=== PATIENT | female | born 1995 | race Caucasian/White ===

== ENCOUNTER 2017-06-15 22:29 | Emergency (ER) | payer SELFPAY ==
[2017-06-15 23:44] LABS: AMORPHOUS SEDIMENT,URINE TRACE /HPF; APPEARANCE,URINE CLOUDY; BILIRUBIN,URINE NEGATIVE (NEGATIVE); GLUCOSE, URINE NEGATIVE (NEGATIVE); KETONES,URINE TRACE mg/dL (NEGATIVE); LEUKOCYTE ESTERASE,URINE LARGE (NEGATIVE); NITRITE,URINE NEGATIVE (NEGATIVE); PROTEIN,URINE 30 mg/dL (NEGATIVE); UROBILINOGEN,URINE NEGATIVE mg/dL (<2.0)
[2017-06-16] MEDS ORDERED: PHENAZOPYRIDINE HCL 200 MG TABLET PO ONE (00:26)
[2017-06-16] MEDS ORDERED: CIPROFLOXACIN HCL 500 MG TABLET PO ONE (00:26)
--- NOTE | 2017-06-16 00:26 | ER Document Report ---
ED GI/ - HPI Similar symptoms previously: Yes Recently seen / treated by doctor: No - General Chief Complaint: Urinary Problem Stated Complaint: UTI SYMPTOMS Time Seen by Provider: 06/16/17 00:18 Notes: This 21-year-old female patient comes emergency room complaining of frequency and dysuria and suprapubic pressure since Saturday afternoon. She reports she frequently gets urinary tract infections since the having the Implanon placed after the of her child. By history, it seems she always gets prescribed Cipro. She states this was used after another antibiotic did not work for UTI during her . Urinalysis today shows a hemorrhagic cystitis. The urine culture will be done. She is encouraged to call medical records to get a copy of her urine culture and sensitivity to keep with her so that a better antibiotic choice than using Cipro can be done in the future if needed. The patient also reported a throbbing sensation in the right lower quadrant pelvic region this afternoon which is gone now. She also had a pain in her left scapular area and right elbow recently and wondered if it was related to the urine infection. (KVNG SANTANA) - Related Data Allergies/Adverse Reactions: Penicillins Allergy (Verified 06/15/17 22:49) Past Medical History - General Information source: Patient - Social History Smoking Status: Never Smoker Cigarette use (# per day): No Chew tobacco use (# tins/day): No Smoking Education Provided: No Frequency of alcohol use: None Drug Abuse: None Family History: None Patient has suicidal ideation: No Patient has homicidal ideation: No Surgical Hx: Negative Review of Systems - Review of Systems Constitutional: No symptoms reported EENT: No symptoms reported Cardiovascular: No symptoms reported Respiratory: No symptoms reported Gastrointestinal: See HPI, Abdominal pain Genitourinary: See HPI, Burning, Dysuria Female Genitourinary: No symptoms reported Musculoskeletal: No symptoms reported Skin: No symptoms reported Hematologic/Lymphatic: No symptoms reported Neurological/Psychological: No symptoms reported -: Yes All other systems reviewed and negative Physical Exam - Vital signs Interpretation: Normal - Vital signs Vitals: Pulse Resp BP Pulse Ox 55 L 17 105/61 100 06/15/17 22:49 06/15/17 22:49 06/15/17 22:49 06/15/17 22:49 - Notes Notes: GENERAL: Alert, interacts well. No acute distress. HEAD: Normocephalic, atraumatic. EYES: Appear normal. Pupils equal, round, and reactive to light. ENT: Moist mucus membranes, tongue midline. NECK: Full range of motion. Supple. Trachea midline. LUNGS: Clear to auscultation bilaterally, no wheezes, rales, or rhonchi. No respiratory distress. HEART: Regular rate and rhythm. No murmurs, gallops, or rubs. ABDOMEN: Soft, slight suprapubic tenderness with palpation, LLQ is non-tender. Non-distended. Normal bowel sounds. EXTREMITIES: Moves all 4 extremities spontaneously. Normal strength. No edema. NEUROLOGICAL: Alert and oriented x3. Normal speech. No focal neurological deficits. GCS 15. PSYCH: Normal affect, normal mood. SKIN: Warm, dry, normal turgor. No rashes or lesions noted. (KIAH MITCHELL) - Vital Signs Vital signs: Temp Pulse Resp BP Pulse Ox 55 L 17 105/61 100 06/15/17 22:49 06/15/17 22:49 06/15/17 22:49 06/15/17 22:49 - Laboratory Laboratory results interpreted by me: 06/15/17 23:10 Urine Protein 30 H Urine Ketones TRACE H Urine Blood LARGE H Ur Leukocyte Esterase LARGE H Discharge - Discharge Clinical Impression: Urinary tract infection Qualifiers: Urinary tract infection type: acute cystitis Hematuria presence: with hematuria Qualified Code(s): N30.01 - Acute cystitis with hematuria Condition: Stable Disposition: HOME, SELF-CARE Additional Instructions: Urinary Tract Infection: Your evaluation indicates that you have a urinary tract infection. This is due to germs growing in the bladder. This is a common problem. This infection usually responds quickly to antibiotics. Your antibiotic should be taken exactly as prescribed. Drink plenty of fluids -- three to four quarts a day. Occasionally, a bladder anesthetic will be prescribed to help stop the feeling of urgency until the antibiotic has a chance to clear the infection. This may cause your urine to be dark orange. Certain urine infections require a culture. If the doctor obtained a culture, the results will be back in two days. You should call to see if a change in treatment is needed. A repeat urinalysis after you finish treatment is often recommended. The physician will let you know if further testing is required. Call the doctor if you develop fever, chills, flank pain, inability to urinate, or blood in the urine. //////////////////////////////////////////////////////////////////////////////// //////////////////////////////////////////////////////////////////////////////// //////////////// Take the medications as prescribed. Drink plenty of fluids. Follow-up with a local medical doctor or return to emergency room if not improving. Call medical records later this week to get a copy of the urine culture and sensitivity report. You should carry that with you the next time you seek treatment for urinary tract infection. RETURN TO THE EMERGENCY ROOM IF ANY NEW OR WORSENING SYMPTOMS. Prescriptions: Ciprofloxacin HCl [Cipro 250 mg Tablet] 1 tab PO BID #10 tab Phenazopyridine HCl [Pyridium 200 mg Tablet] 200 mg PO TID #10 tablet Scribe Attestation: 06/16/17 00:29 I personally performed the services described in the documentation, reviewed and edited the documentation which was dictated to the scribe in my presence, and it accurately records my words and actions. (KVNG SANTANA) Scribe Documentation - Scribe Written by Scrgianfranco:: Kiah Mitchell, Nirav 06/16/2017 00:55 acting as scribe for :: Howie
[2017-06-16 00:59] VITALS: BP 111/64
== END 2017-06-16 00:58 | disposition home or self-care (01) ==
LOC: ER 22:29
DX: N30.01 Acute cystitis with hematuria (principal); Z88.0 Allergy status to penicillin
CPT/HCPCS: 99283; 87086; 81025; 81001; J3490

== ENCOUNTER 2017-11-25 10:35 | Emergency (ER) | payer BC, MEDICAID ==
[2017-11-25 10:40] VITALS: BP 111/62
--- NOTE | 2017-11-25 11:38 | ER Document Report ---
HPI - HPI Onset: Yesterday Onset/Duration: Gradual Quality of pain: Achy Pain Level: 2 Context: Patient presents complaining of cough and congestion with sneezing that started yesterday. Patient denies any fever. Patient works around food and states that her employer advised her to get a note stating that she is not contagious. Associated Symptoms: Nonproductive cough, Rhinnorhea. denies: Fever, Vomiting Exacerbated by: Denies Relieved by: Denies Similar symptoms previously: Yes Recently seen / treated by doctor: No - ROS ROS below otherwise negative: Yes Systems Reviewed and Negative: Yes All other systems reviewed and negative - CONSTITUTIONAL Constitutional: DENIES: Fever - EENT EENT: REPORTS: Sore Throat, Nasal Drainage-Clear, Congestion - RESPIRATORY Respiratory: REPORTS: Coughing - GASTROINTESTINAL Gastrointestinal: DENIES: Abdominal Pain, Nausea, Patient vomiting, Diarrhea - DERM Skin Color: Normal Skin Problems: None Past Medical History - General Information source: Patient - Social History Smoking Status: Current Every Day Smoker Smoking Education Provided: Yes Frequency of alcohol use: Rare Drug Abuse: None Occupation: [employer] Family History: None Patient has suicidal ideation: No Patient has homicidal ideation: No - Medical History Medical History: Negative Pulmonary Medical History: Reports: Hx Asthma Renal/ Medical History: Denies: Hx Peritoneal Dialysis Psychiatric Medical History: Reports: Hx Depression - post Surgical Hx: Negative Vertical Provider Document - CONSTITUTIONAL Agree With Documented VS: Yes Exam Limitations: No Limitations General Appearance: WD/WN, No Apparent Distress - INFECTION CONTROL TRAVEL OUTSIDE OF THE [place] IN LAST 30 DAYS: No - HEENT HEENT: Atraumatic, Normocephalic, Pharyngeal Tenderness. negative: Pharyngeal Exudate, Pharyngeal Erythema, Tympanic Membrane Red, Tympanic Membrane Bulging Notes: clear rhinorrhea - NECK Neck: Normal Inspection, Supple. negative: Lymphadenopathy-Left, Lymphadenopathy-Right - RESPIRATORY Respiratory: Breath Sounds Normal, No Respiratory Distress, Chest Non-Tender O2 Sat by Pulse Oximetry: 99 - CARDIOVASCULAR Cardiovascular: Regular Rate, Regular Rhythm, No Murmur - BACK Back: Normal Inspection - MUSCULOSKELETAL/EXTREMETIES Musculoskeletal/Extremeties: MAEW - NEURO Level of Consciousness: Awake, Alert, Appropriate Motor/Sensory: No Motor Deficit - DERM Integumentary: Warm, Dry, No Rash Course - Re-evaluation Re-evalutation: 11/25/17 11:36 Patient presents with symptoms consistent with upper respiratory infection. No concern for pneumonia or PE at this time. No concern for REC[employer]ROCATING [employer]. Good return precautions given to patient. - Vital Signs Vital signs: Temp Pulse Resp BP Pulse Ox 99.6 F 81 14 111/62 99 11/25/17 10:39 11/25/17 10:39 11/25/17 10:39 11/25/17 10:39 11/25/17 10:39 Discharge - Discharge Clinical Impression: Upper respiratory infection Qualifiers: URI type: unspecified URI Qualified Code(s): J06.9 - Acute upper respiratory infection, unspecified Condition: Stable Disposition: HOME, SELF-CARE Instructions: Acetaminophen, Upper Respiratory Illness ([facility]) Additional Instructions: Return immediately for any new or worsening symptoms Followup with your primary care provider, call tomorrow to make a followup appointment Prescriptions: Benzonatate [Tessalon Perle 100 mg Capsule] 100 mg PO Q8HP PRN #15 cap PRN Reason: Guaifenesin/Pseudoephedrne HCl [Mucinex D ER Tablet] 1 each PO Q12 PRN #12 tab.er.12h PRN Reason: Forms: Smoking Cessation Education, Return to Work Referrals: [facility] [Provider Group] - Follow up as needed
== END 2017-11-25 11:55 | disposition home or self-care (01) ==
LOC: ER 10:35
DX: J06.9 Acute upper respiratory infection, unspecified (principal); R05 Cough; J02.9 Acute pharyngitis, unspecified; R06.7 Sneezing; J34.89 Other specified disorders of nose and nasal sinuses; J45.909 Unspecified asthma, uncomplicated; F17.200 Nicotine dependence, unspecified, uncomplicated
CPT/HCPCS: 99283

== ENCOUNTER 2018-01-04 21:50 | Emergency (ER) | payer BC, MEDICAID ==
[2018-01-04] MEDS ORDERED: MIDAZOLAM 2 MG/2 ML INJ IV ONE (22:08)
[2018-01-04] MEDS ORDERED: ONDANSETRON HCL INJ/PF 4 MG/2 ML SDV IV ONE (22:08)
[2018-01-04] MEDS ORDERED: NORMAL SALINE 1000 ML 1,000 ML IV ONE (22:08)
--- NOTE | 2018-01-04 22:09 | ER Document Report ---
ED General - General Stated Complaint: POSSIBLE OVERDOSE Time Seen by Provider: 01/04/18 21:56 Cannot obtain history due to: Uncooperative Notes: Patient is a 22-year-old female with a past medical history of anxiety and opiate abuse who presents after being found unconscious in her car. The patient apparently had chest compressions performed by her significant other who was in the vehicle with her as well as her young child reported to be 5 years of age. The patient received 2 mg of intramuscular naloxone and had resolution of her apnea and somnolence. The patient was subsequently transported to the emergency department. After having reversal of the opiates patient has had nausea, vomiting and some tremors. The patient states that she did inject herself what she thought was heroin shortly prior to the onset of the episode. She denies prior overdoses in the past. She denies any suicidal intention with today's actions. History is otherwise limited as patient is quite anxious, upset, asking about what will happen to her child. TRAVEL OUTSIDE OF THE [place] IN LAST 30 DAYS: No - Related Data Allergies/Adverse Reactions: Penicillins Allergy (Verified 01/04/18 22:32) Past Medical History - General Information source: Patient - Social History Smoking Status: Current Every Day Smoker Frequency of alcohol use: Occasional Drug Abuse: Heroin Lives with: Spouse/Significant other Family History: Reviewed & Not Pertinent Pulmonary Medical History: Reports: Hx Asthma Renal/ Medical History: Denies: Hx Peritoneal Dialysis Psychiatric Medical History: Reports: Hx Depression - post Review of Systems - Review of Systems Notes: Constitutional: Negative for fever. HENT: Negative for sore throat. Eyes: Negative for visual changes. Cardiovascular: Negative for chest pain. Respiratory: Negative for shortness of breath. Gastrointestinal: Positive for nausea and vomiting Genitourinary: Negative for dysuria. Musculoskeletal: Negative for back pain. Skin: Negative for rash. Neurological: Negative for headaches, weakness or numbness. 10 point ROS negative except as marked above and in HPI. Physical Exam - Vital signs Vitals: Pulse 100 01/04/18 21:50 Interpretation: Tachycardic Notes: PHYSICAL EXAMINATION: GENERAL: Anxious, tearful HEAD: Atraumatic, normocephalic. EYES: Pupils equal round and reactive to light, extraocular movements intact, sclera anicteric, conjunctiva are normal. ENT: nares patent, oropharynx clear without exudates. Mildly dry mucous membranes. NECK: Normal range of motion, supple without lymphadenopathy LUNGS: Breath sounds clear to auscultation bilaterally and equal. No wheezes rales or rhonchi. HEART: Regular tachycardia without murmurs ABDOMEN: Soft, nontender, normoactive bowel sounds. No guarding, no rebound. No masses appreciated. EXTREMITIES: Normal range of motion, no pitting or edema. No cyanosis. NEUROLOGICAL: No focal neurological deficits. Moves all extremities spontaneously and on command. PSYCH: Anxious, tearful SKIN: Warm, Dry, normal turgor, track addison the bilateral antecubital fossa Course - Re-evaluation Re-evalutation: 01/04/18 22:08 Patient presents after an acute opiate overdose, reversed in the field by EMS with naloxone. Patient presents nontoxic in appearance, in no distress, admits to ongoing opiate abuse. I had an extensive conversation with the patient about the dangers opiate abuse, have emphasized that they are never going to be certain what they are self administering particularly given the high rates of fentanyl in our community. Rehab resources have been offered. No indication for labs or imaging. I have provided the patient with Zofran as well as clonidine for withdrawal control. Patient has remained awake, alert, oriented without any evidence of somnolence, hypoventilation or bradycardia to suggest ongoing opiate intoxication that would warrant further observation. At this time will discharge with return precautions and follow-up recommendations. Verbal discharge instructions given a the bedside and opportunity for questions given. Medication warnings reviewed. Patient is in agreement with this plan and has verbalized understanding of return precautions and the need for primary care follow-up in the next 24-72 hours. - Vital Signs Vital signs: Temp Pulse Resp BP Pulse Ox 98 F 100 12 112/68 99 01/05/18 01:00 01/04/18 21:50 01/05/18 01:00 01/05/18 01:00 01/05/18 01:00 Discharge - Discharge Clinical Impression: Anxiety attack Heroin overdose Qualifiers: Encounter type: initial encounter Injury intent: accidental or unintentional Qualified Code(s): T40.1X1A - Poisoning by heroin, accidental (unintentional), initial encounter Nausea & vomiting Qualifiers: Vomiting type: unspecified Vomiting Intractability: non-intractable Qualified Code(s): R11.2 - Nausea with vomiting, unspecified Condition: Good Disposition: HOME, SELF-CARE Additional Instructions: You were seen today for heroin overdose. Please never use opiates of any kind. Over 130 people every day in the [place] from opiate overdoses. Do not become a statistic. You should urgently seek rehab or a similar resource. You can call 3-073-850-[employer] to find local resources. Return if you have any symptoms that are concerning to you including difficulty breathing, fever, persistent vomiting, or any other symptoms that are concerning to you.
[2018-01-05 01:48] VITALS: BP 112/68
--- NOTE | 2018-01-05 22:54 | EKG REPORT ---
SEVERITY:- ABNORMAL ECG - SINUS TACHYCARDIA FIRST DEGREE AV BLOCK BORDERLINE T ABNORMALITIES, ANTERIOR LEADS : Confirmed by: Mayte Bennett 05-Jan-2018 22:53:59
== END 2018-01-05 01:47 | disposition home or self-care (01) ==
LOC: ER 21:50
DX: T40.1X1A Poisoning by heroin, accidental (unintentional), initial encounter (principal); F41.9 Anxiety disorder, unspecified; R11.2 Nausea with vomiting, unspecified; G25.1 Drug-induced tremor; J45.909 Unspecified asthma, uncomplicated; F17.200 Nicotine dependence, unspecified, uncomplicated
CPT/HCPCS: 93005; 99284; 96361; 96374; 96375; 93010; J2250; J2405; J7030

== ENCOUNTER 2018-05-05 14:37 | Emergency (ER) | payer BC, MEDICAID ==
[2018-05-05] MEDS ORDERED: RINGERS SOLUTION,LACTATED 1,000 ML IV ONE (15:33)
--- NOTE | 2018-05-05 15:36 | ER Document Report ---
ED GI/ - General Chief Complaint: Vomiting Stated Complaint: HEADACHE Time Seen by Provider: 05/05/18 15:32 Notes: Chief complaint: Dehydration History of complain:( obtained from----patient) 22 years old female was walking in the hot sun for about a mile at the end of it she reached her working place and went into the building felt nauseous and vomited once felt chills throughout the body subsequently she was sent over here to be evaluated. She states now she is feeling fine there is no discomfort at all. Denies any fever chills or other constitutional symptoms. Onset: As above Duration: Just prior to arrival Severity: Moderate Quality: As above Context: As above Exacerbating factor and relieving factors: As above REVIEW OF SYSTEMS: CONSTITUTIONAL : Denies fever, chills, or sweats. Denies recent illness. EENT: Denies eye, ear, throat, or mouth pain or symptoms. Denies nasal or sinus congestion or discharge. Denies throat, tongue, or mouth swelling or difficulty swallowing. CARDIOVASCULAR: Denies chest pain. Denies palpitations or racing or irregular heart beat. Denies ankle edema. RESPIRATORY: Denies cough, cold, or chest congestion. Denies shortness of breath, difficulty breathing, or wheezing. GASTROINTESTINAL: Denies distention. Denies nausea, vomiting, or diarrhea. Denies blood in vomitus, stools, or per rectum. Denies black, tarry stools. Denies constipation. GENITOURINARY: Denies difficulty urinating, painful urination, burning, frequency, blood in urine, or discharge. FEMALE GENITOURINARY: Denies vaginal bleeding, heavy or abnormal periods, irregular periods. Denies vaginal discharge or odor. MUSCULOSKELETAL: Denies back or neck pain or stiffness. Denies joint pain or swelling. SKIN: Denies rash, lesions or sores. HEMATOLOGIC : Denies easy bruising or bleeding. LYMPHATIC: Denies swollen, enlarged glands. NEUROLOGICAL: Denies confusion or altered mental status. Denies passing out or loss of consciousness. Denies dizziness or lightheadedness. Denies headache. Denies weakness or paralysis or loss of use of either side. Denies problems with gait or speech. Denies sensory loss, numbness, or tingling. Denies seizures. PSYCHIATRIC: Denies anxiety or stress. Denies depression, suicidal ideation, or homicidal ideation. ALL OTHER SYSTEMS REVIEWED AND NEGATIVE. PHYSICAL EXAMINATION: GENERAL: Well-appearing, well-nourished and in no acute distress. HEAD: Atraumatic, normocephalic. EYES: Pupils equal round and reactive to light, extraocular movements intact, conjunctiva are normal. ENT: Nares patent, oropharynx clear without exudates. Moist mucous membranes. NECK: Normal range of motion, supple without lymphadenopathy LUNGS: Breath sounds clear to auscultation bilaterally and equal. No wheezes rales or rhonchi. HEART: Regular rate and rhythm without murmurs ABDOMEN: Soft, nontender, nondistended abdomen. No guarding, no rebound. No masses appreciated. Examination of genitals-deferred Musculoskeletal: Normal range of motion, no pitting or edema. No cyanosis. NEUROLOGICAL: Cranial nerves grossly intact. Normal speech, normal gait. Normal sensory, motor exams PSYCH: Normal mood, normal affect. SKIN: Warm, Dry, normal turgor, no rashes or lesions noted. Dictation was performed using [employer] voice recognition software dehydration TRAVEL OUTSIDE OF THE [place] IN LAST 30 DAYS: No - HPI Notes: 05/05/18 15:34 Dictated - Related Data Allergies/Adverse Reactions: Penicillins Allergy (Verified 05/05/18 15:20) Past Medical History - Social History Smoking Status: Current Some Day Smoker Chew tobacco use (# tins/day): No Frequency of alcohol use: Occasional Drug Abuse: None Family History: Reviewed & Not Pertinent Patient has suicidal ideation: No Patient has homicidal ideation: No Pulmonary Medical History: Reports: Hx Asthma Renal/ Medical History: Denies: Hx Peritoneal Dialysis Psychiatric Medical History: Reports: Hx Depression - post Review of Systems - Review of Systems Notes: Dictated Physical Exam - Notes Notes: Dictated Course - Re-evaluation Re-evalutation: 05/05/18 15:34 Given liter of lactated Ringer Discharge - Discharge Clinical Impression: Dehydration after exertion Condition: Fair Disposition: HOME, SELF-CARE Instructions: Dehydration ([facility]) Forms: Return to Work
[2018-05-05 17:31] VITALS: BP 98/48
== END 2018-05-05 17:32 | disposition home or self-care (01) ==
LOC: ER 14:37
DX: R11.10 Vomiting, unspecified (principal); R51 Headache; E86.0 Dehydration; F17.200 Nicotine dependence, unspecified, uncomplicated; Z88.0 Allergy status to penicillin
CPT/HCPCS: 99283

== ENCOUNTER 2018-05-26 15:21 | Emergency (ER) | payer BC, MEDICAID, OTHER ==
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
[2018-05-26] MEDS ORDERED: ACETAMINOPHEN 325 MG TABLET PO ONE (15:58)
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
[2018-05-26 17:31] VITALS: BP 107/74
== END 2018-05-26 17:32 | disposition home or self-care (01) ==
LOC: ER 15:21
DX: S80.212A Abrasion, left knee, initial encounter (principal); S80.211A Abrasion, right knee, initial encounter; S50.312A Abrasion of left elbow, initial encounter; S50.311A Abrasion of right elbow, initial encounter; S70.311A Abrasion, right thigh, initial encounter; S80.811A Abrasion, right lower leg, initial encounter; S90.811A Abrasion, right foot, initial encounter; V13.4XXA Pedal cycle driver injured in collision with car, pick-up truck or van in traffic accident, initial encounter; F17.200 Nicotine dependence, unspecified, uncomplicated
CPT/HCPCS: 72070; 73522; 99284

== ENCOUNTER 2018-06-11 10:36 | Emergency (ER) | payer BC, MEDICAID ==
[2018-06-11] MEDS ORDERED: CLINDAMYCIN 600 MG/D5W RTU 600 MG/50 ML RTUPB IV ONE (11:00)
[2018-06-11] MEDS ORDERED: NORMAL SALINE 1000 ML 1,000 ML IV ONE ×2 (11:01→12:11)
--- NOTE | 2018-06-11 11:08 | ER Document Report ---
ED Medical Screen (RME) - General Chief Complaint: Hand Swelling Stated Complaint: PAINFUL, RED LEFT RING FINGER Time Seen by Provider: 06/11/18 10:50 Mode of Arrival: Ambulatory Information source: Patient Notes: Patient is here for left fourth finger infection. She says she has been started on oral antibiotics but the infection is getting worse. To make a fist with her left hand because of the swelling. Recent is allergic to penicillin. I have greeted and performed a rapid initial assessment of this patient. A comprehensive ED assessment and evaluation of the patient, analysis of test results and completion of the medical decision making process will be conducted by additional ED providers. TRAVEL OUTSIDE OF THE [place] IN LAST 30 DAYS: No - Related Data Allergies/Adverse Reactions: Penicillins Allergy (Verified 06/11/18 10:37) Past Medical History Pulmonary Medical History: Reports: Hx Asthma Renal/ Medical History: Denies: Hx Peritoneal Dialysis Psychiatric Medical History: Reports: Hx Depression - post Physical Exam - Vital signs Vitals: Temp Pulse Resp BP Pulse Ox 97.8 F 84 16 107/57 L 98 06/11/18 10:42 06/11/18 10:42 06/11/18 10:42 06/11/18 10:42 06/11/18 10:42 Course - Vital Signs Vital signs: Temp Pulse Resp BP Pulse Ox 97.8 F 84 16 107/57 L 98 06/11/18 10:42 06/11/18 10:42 06/11/18 10:42 06/11/18 10:42 06/11/18 10:42
[2018-06-11 11:32] LABS: ABSOLUTE BASOPHILS # (AUTO) 0.1 10^3/uL (0.0-0.2); ABSOLUTE EOSINOPHILS # (AUTO) 0.3 10^3/uL (0.0-0.6); ABSOLUTE LYMPHOCYTES (AUTO) 1.2 10^3/uL (0.5-4.7); ABSOLUTE MONOCYTES (AUTO) 0.4 10^3/uL (0.1-1.4); ABSOLUTE NEUT (AUTO) 3.1 10^3/uL (1.7-8.2); EOSINOPHILS % (AUTO) 5.9 % (0-6); HEMATOCRIT 36.6 % (36.0-47.0); HEMOGLOBIN 11.8 g/dL (12.0-15.5); LYMPHOCYTES % (AUTO) 23.8 % (13-45); MEAN CORPUSCULAR HEMOGLOBIN 23.9 pg (27.0-33.4); MEAN CORPUSCULAR HGB CONC 32.3 g/dL (32.0-36.0); MEAN CORPUSCULAR VOLUME 74 fl (80-97); PLATELET COUNT 293 10^3/uL (150-450); RED BLOOD COUNT 4.93 10^6/uL (3.72-5.28); RED CELL DISTRIBUTION WIDTH 15.1 % (11.5-14.0); SEGMENTED NEUTROPHILS % (AUTO) 62.3 % (42-78); TOTAL CELLS COUNTED % (AUTO) 100 %
[2018-06-11 11:34] LABS: APPEARANCE,URINE SLIGHTLY-CLOUDY; BILIRUBIN,URINE NEGATIVE (NEGATIVE); COLOR,URINE YELLOW; GLUCOSE, URINE NEGATIVE (NEGATIVE); KETONES,URINE NEGATIVE (NEGATIVE); LEUKOCYTE ESTERASE,URINE TRACE (NEGATIVE); NITRITE,URINE NEGATIVE (NEGATIVE); PROTEIN,URINE NEGATIVE (NEGATIVE); URINE SPECIFIC GRAVITY 1.024; UROBILINOGEN,URINE NEGATIVE mg/dL (<2.0)
[2018-06-11 11:37] LABS: INTERNATIONAL RATION (INR) 1.03
[2018-06-11 11:38] LABS: PARTIAL THROMBOPLASTIN TIME 68.1 SEC (23.5-35.8)
[2018-06-11 11:51] LABS: ALANINE AMINOTRANSFERASE 16 U/L (9-52); ALBUMIN 4.6 g/dL (3.5-5.0); ALKALINE PHOSPHATASE 102 U/L (38-126); ANION GAP 12 (5-19); ASPARTATE AMINO TRANSFERASE 29 U/L (14-36); BILIRUBIN,DIRECT 0.3 mg/dL (0.0-0.4); BILIRUBIN,TOTAL 0.4 mg/dL (0.2-1.3); BLOOD UREA NITROGEN 11 mg/dL (7-20); CALCIUM 10.3 mg/dL (8.4-10.2); CARBON DIOXIDE 25 mmol/L (22-30); CHLORIDE 106 mmol/L (98-107); GLUCOSE 63 mg/dL (75-110); POTASSIUM 4.1 mmol/L (3.6-5.0); SODIUM 142.9 mmol/L (137-145); TOTAL PROTEIN 8.6 g/dL (6.3-8.2)
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
--- NOTE | 2018-06-11 12:40 | RADIOLOGY REPORT (SQ) ---
EXAM DESCRIPTION: HAND LEFT 3 VIEWS COMPLETED DATE/TIME: 06/11/2018 12:28 pm REASON FOR STUDY: look for soft tissue FB, osteo COMPARISON: None. EXAM PARAMETERS: NUMBER OF VIEWS: Three views. TECHNIQUE: AP, lateral and oblique radiographic images acquired of the left hand. LIMITATIONS: None. FINDINGS: MINERALIZATION: Normal. BONES: No acute fracture or dislocation. No worrisome bone lesions. No cortical erosions or lytic are as are identified to suggest bony involvement by osteomyelitis. JOINTS: No erosions. No ashlee-articular osteopenia. No chondrocalcinosis. SOFT TISSUES: There is apparent soft tissue swelling involving the 4th digit. No calcifications. OTHER: No radiopaque foreign body is identified. IMPRESSION: There is apparent soft tissue swelling involving the 4th digit. No other significant fi ndings. TECHNICAL DOCUMENTATION: JOB ID: [id number] [employer]- All Rights Reserved Reading location - IP/workstation name: [email or web address]
--- NOTE | 2018-06-11 14:15 | RADIOLOGY REPORT (SQ) ---
EXAM DESCRIPTION: MRI LT UPPER EXTREMITY WITHOUT COMPLETED DATE/TIME: 06/11/2018 1:52 pm REASON FOR STUDY: possible joint infection, left 4th MCP COMPARISON: None. TECHNIQUE: Multiplanar imaging of the 4th phalanx and distal metacarpal to include fat and fluid sen sitive sequences. LIMITATIONS: None. FINDINGS: BONE MARROW: No marrow signal alteration. Specifically no marrow replacement or marrow ed thais. No evidence for osteomyelitis. No cortical break through. SOFT TISSUES: Extensive edema in the soft tissues along the dorsal margin of metacarpophalangeal join t and proximal 1st phalanx. There is thickening and increased signal in the extensor tendon at the l evel of the metacarpophalangeal joint. No organized fluid collection or joint effusion. OTHER: No other significant finding. IMPRESSION: Deep cellulitis with tendinopathy in the extensor tendon. No evidence of osteomyelitis or septic arthritis. TECHNICAL DOCUMENTATION: JOB ID: [id number] [employer]- All Rights Reserved Reading location - IP/workstation name: [email or web address]
[2018-06-11] MEDS ORDERED: LIDOCAINE 1% INJ-PF (10 MG/ML) 30 ML SDV INJ ONE (14:29)
[2018-06-11 18:11] VITALS: BP 98/58
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
== END 2018-06-11 18:12 | disposition home or self-care (01) ==
LOC: ER 10:36
PROC: 0H9GXZZ Drainage of Left Hand Skin, External Approach (ICD-10-PCS; principal; 2018-06-11)
DX: S60.41 Abrasion of fingers (principal); V49.9XXS Car occupant (driver) (passenger) injured in unspecified traffic accident, sequela; L02.512 Cutaneous abscess of left hand
CPT/HCPCS: 99284; 96361; 96365; 36415; 87040; 87070; 87205; 85025; 85610; 85730; 81025; 80053; 81001; 87186; 83605; 73218; 73130; 10060; J3490

== ENCOUNTER 2018-06-21 15:40 | Emergency (ER) | payer BC, MEDICAID ==
--- NOTE | 2018-06-21 18:00 | ER Document Report ---
ED Eye Complaint - General Chief Complaint: Eye Pain Stated Complaint: EYE REDNESS Time Seen by Provider: 06/21/18 17:55 Information source: Patient Notes: 22-year-old female that states she has had some eye irritation and some itching for the last 2 days, right greater than left. She denies any blurry vision, facial swelling, weakness or numbness. She states she has been using Visine drops. She denies any trauma or foreign body to the eye. Patient also states that she had an infection in the left hand with incision and drainage on June 11. She states she was taking clindamycin for 2 days but developed a rash at that time so she has discontinued the medication. TRAVEL OUTSIDE OF THE [place] IN LAST 30 DAYS: No - HPI Onset: Other - See above Eye location: Bilateral Injury: No Occurred at: Home Severity: Mild Pain Level: Denies Associated symptoms: Redness - Related Data Allergies/Adverse Reactions: Penicillins Allergy (Verified 06/21/18 15:42) Past Medical History - Social History Smoking Status: Current Every Day Smoker Family History: Reviewed & Not Pertinent Patient has suicidal ideation: No Patient has homicidal ideation: No Pulmonary Medical History: Reports: Hx Asthma Renal/ Medical History: Denies: Hx Peritoneal Dialysis Psychiatric Medical History: Reports: Hx Depression - post Physical Exam - Vital signs Vitals: Temp Pulse Resp BP Pulse Ox 98.2 F 66 14 94/51 L 100 06/21/18 16:00 06/21/18 16:00 06/21/18 16:00 06/21/18 16:00 06/21/18 16:00 Interpretation: Normal Notes: Reviewed vital signs and nursing note as charted by RN. CONSTITUTIONAL: Somnolent but awakes with stimulation HEAD: Normocephalic; atraumatic EYES: PERRL; full extraocular range of motion; bilateral scleral injection with no obvious discharge or periorbital swelling or erythema No fluorescein uptake noted. Slit lamp detect no foreign bodies or cell or flare ENT: Normal nose; no rhinorrhea; moist mucous membranes; pharynx without lesions noted EXT: Normal ROM in all joints; patient has a well-healed scar to the dorsal aspect of the left third knuckle with no swelling, erythema, induration, or fluctuance SKIN: No acute lesions noted NEURO: CN II through XII are intact Course - Re-evaluation Re-evalutation: 06/21/18 18:00 Given the history and physical examination I will perform a visual acuity exam, with lamp exam, slit-lamp exam, and reassess. I would like to evaluate for any possible foreign body or infectious-like finding. 06/21/18 18:54 Visual acuity as recorded. Patient states she supposed to be wearing glasses. She does not wear contacts. On examination I do not detect any foreign bodies, cell or flare, or fluorescein uptake. I will provide Polytrim eyedrops with strict return precautions and follow-up with the primary care provider. - Vital Signs Vital signs: Temp Pulse Resp BP Pulse Ox 98.2 F 66 14 94/51 L 100 06/21/18 16:00 06/21/18 16:00 06/21/18 16:00 06/21/18 16:00 06/21/18 16:00 Discharge - Discharge Clinical Impression: Eye irritation Condition: Good Disposition: HOME, SELF-CARE Additional Instructions: Come back immediately for any increased eye irritation, facial swelling, blurry vision or double vision, vomiting, or any other acute problems. Please follow- up with the senior controls analyst as we have discussed and take the antibiotic eyedrops as provided. Prescriptions: Polymyxin B Sulf/Trimethoprim [Polytrim Eye Drops] 1 drop OP Q3H #1 bottle
[2018-06-21 19:12] VITALS: BP 98/52
== END 2018-06-21 19:13 | disposition home or self-care (01) ==
LOC: ER 15:40
DX: H57.9 Unspecified disorder of eye and adnexa (principal); L29.9 Pruritus, unspecified; F17.200 Nicotine dependence, unspecified, uncomplicated; Z88.0 Allergy status to penicillin; J45.909 Unspecified asthma, uncomplicated; R40.0 Somnolence
CPT/HCPCS: 99283

== ENCOUNTER 2018-10-01 15:41 | Emergency (ER) | payer BC, MEDICAID ==
--- NOTE | 2018-10-01 17:43 | ER Document Report ---
ED Medical Screen (RME) - General Chief Complaint: Pain With Urination Stated Complaint: PAIN WITH URINATION, PELVIC CRAMPING Time Seen by Provider: 10/01/18 17:36 Mode of Arrival: Ambulatory Information source: Patient Notes: 23-year-old female presents with complaint of dysuria, abdominal cramping for 2 days. Last menstrual period unknown. I have greeted and performed a rapid initial assessment of this patient. A comprehensive ED assessment and evaluation of the patient, analysis of test results and completion of medical decision making process we will be contacted by additional ED providers. PHYSICAL EXAMINATION: Vital signs reviewed GENERAL: Well-appearing, well-nourished and in no acute distress. LUNGS: No respiratory distress Musculoskeletal: Normal range of motion NEUROLOGICAL: Normal speech, normal gait. PSYCH: Normal mood, normal affect. SKIN: Warm, Dry, normal turgor, no rashes or lesions noted. TRAVEL OUTSIDE OF THE [place] IN LAST 30 DAYS: No - HPI Onset: Yesterday Onset/Duration: Gradual Quality of pain: Cramping Associated Symptoms: Abdominal pain, Dysuria, Headache, Nausea Exacerbated by: Denies Relieved by: Denies Similar symptoms previously: Yes Recently seen / treated by doctor: No - Related Data Smoking: Cigarettes Frequency of alcohol use: None Drug Abuse: None Allergies/Adverse Reactions: Penicillins Allergy (Verified 10/01/18 15:43) Past Medical History - Social History Frequency of alcohol use: Rare Drug Abuse: Other Pulmonary Medical History: Reports: Hx Asthma Renal/ Medical History: Denies: Hx Peritoneal Dialysis Psychiatric Medical History: Reports: Hx Depression - post
[2018-10-01 18:13] LABS: APPEARANCE,URINE TURBID; BILIRUBIN,URINE NEGATIVE (NEGATIVE); COLOR,URINE YELLOW; GLUCOSE, URINE NEGATIVE (NEGATIVE); KETONES,URINE NEGATIVE (NEGATIVE); LEUKOCYTE ESTERASE,URINE MODERATE (NEGATIVE); NITRITE,URINE NEGATIVE (NEGATIVE); PROTEIN,URINE 30 mg/dL (NEGATIVE); URINE SPECIFIC GRAVITY 1.025; UROBILINOGEN,URINE NEGATIVE mg/dL (<2.0)
[2018-10-01] MEDS ORDERED: CEPHALEXIN 500 MG CAPSULE PO ONE (19:24)
--- NOTE | 2018-10-01 19:38 | ER Document Report ---
ED General - General Mode of Arrival: Ambulatory TRAVEL OUTSIDE OF THE [place] IN LAST 30 DAYS: No - General Chief Complaint: Pain With Urination Stated Complaint: PAIN WITH URINATION, PELVIC CRAMPING Time Seen by Provider: 10/01/18 17:36 Notes: 23-year-old female presents to the emergency department for dysuria and cramping for about the last week. She states that these are symptoms typical of UTIs. She states she typically gets a migraine type headache 1 week prior to symptoms and this occurred this time. She denies fevers, chills, nausea, vomiting. She denies shortness of breath or chest pain. She endorses lower abdominal cramping. She does endorse dysuria and frequency. She denies any abnormal vaginal discharge. Her last menstrual period was in July some time. She is in a monogamous relationship. (REHAN CHAU) - Related Data Allergies/Adverse Reactions: Penicillins Allergy (Verified 10/01/18 15:43) Past Medical History - General Information source: Patient - Social History Smoking Status: Former Smoker Frequency of alcohol use: Rare Drug Abuse: Other Family History: Reviewed & Not Pertinent Patient has suicidal ideation: No Patient has homicidal ideation: No Pulmonary Medical History: Reports: Hx Asthma Renal/ Medical History: Denies: Hx Peritoneal Dialysis Psychiatric Medical History: Reports: Hx Depression - post Review of Systems - Review of Systems Constitutional: See HPI EENT: No symptoms reported Cardiovascular: See HPI Respiratory: See HPI Gastrointestinal: See HPI Genitourinary: See HPI Female Genitourinary: See HPI Musculoskeletal: No symptoms reported Skin: No symptoms reported Hematologic/Lymphatic: No symptoms reported Neurological/Psychological: No symptoms reported Physical Exam - Vital signs Vitals: Temp Pulse Resp BP Pulse Ox 98.5 F 63 16 92/57 L 100 10/01/18 20:00 10/01/18 20:00 10/01/18 20:00 10/01/18 20:00 10/01/18 20:00 - Notes Notes: Reviewed vital signs and nursing note as charted by RN. CONSTITUTIONAL: Well-appearing, well-nourished, acting appropriately for age HEAD: Normocephalic, atraumatic, no swelling EYES: PERRL, Conjunctivae clear, no drainage, EOMI, no scleral icterus ENT: External ears without lesions, External auditory canal is patent, airway patent, mucous membranes pink and moist NECK: Supple, no cervical lymphadenopathy, no masses CARD: Regular rate and rhythm, no murmurs, no rubs, no gallops, capillary refill < 2 seconds, symmetric pulses RESP: The lungs are clear to auscultation bilaterally, no wheezing, no rales, no rhonchi. Respiratory rate and effort are normal, normal chest excursion. No respiratory distress, no retractions, no stridor, no nasal flaring, no accessory muscle use. ABD/GI: Normal bowel sounds, non-distended, soft, mild tenderness to palpation right lower quadrant, no rebound, no guarding, no palpable organomegaly EXT: Normal ROM in all joints, non-tender to palpation, no effusions, no edema SKIN: Normal color for age and race, warm, dry, good turgor, no acute lesions noted NEURO: No facial asymmetry, moves all extremities equally, motor and sensory function intact (REHAN CHAU) Course - Re-evaluation Re-evalutation: 10/01/18 19:56 23-year-old pleasant female presents to the emergency department for UTI symptoms. She states that these are symptoms typical with previous UTIs that include dysuria and abdominal cramping. Urinalysis was positive for urinary tract infection. She states that she is in a monogamous relationship and does not have a concern for any STI's. Pelvic exam was offered to her to assess for bacterial vaginosis, GC/chlamydia, trichomoniasis, but she declined at this time. She says if she continues to have symptoms after treatment of UTI she will return. Plan is to prescribe her Keflex 500 mg twice daily for 7 days. Discharge instructions were given. (REHAN CHAU) 10/01/18 20:15 I was personally available for consultation during this patient's ED course (JUNE CANDELARIA) - Vital Signs Vital signs: Temp Pulse Resp BP Pulse Ox 98.5 F 63 16 92/57 L 100 10/01/18 20:00 10/01/18 20:00 10/01/18 20:00 10/01/18 20:00 10/01/18 20:00 - Laboratory Laboratory results interpreted by me: 10/01/18 16:25 Urine Protein 30 H Ur Leukocyte Esterase MODERATE H Discharge - Discharge Clinical Impression: Urinary tract infection, Dysuria Condition: Good Disposition: HOME, SELF-CARE Instructions: Cephalexin ([facility]), Urinary Tract Infection ([facility]) Additional Instructions: You are seen in the emergency department this evening for a urinary tract infection. Your urinalysis shows that you do have a bladder infection. Because she declined a pelvic exam please pay attention to any signs of pelvic infection like abnormal discharge, foul-smelling discharge, severe lower abdominal cramping or pain. If you develop fever, severe abdominal pain, or evidence of worsening infection please immediately return to the emergency department. Prescriptions: RX: Cephalexin Monohydrate [Keflex 500 mg Capsule] 500 mg PO BID 7 Days capsule
[2018-10-01 20:01] VITALS: BP 92/57
== END 2018-10-01 20:06 | disposition home or self-care (01) ==
LOC: ER 15:41
DX: N39.0 Urinary tract infection, site not specified (principal); R30.0 Dysuria; Z87.891 Personal history of nicotine dependence; J45.909 Unspecified asthma, uncomplicated
CPT/HCPCS: 81001; 81025; 99283

== ENCOUNTER 2018-12-24 20:22 | Emergency (ER) | payer OTHER, BC, MEDICAID ==
[2018-12-24] MEDS ORDERED: KETOROLAC TROMETHAMINE 60 MG/2 ML SDV IM ONE (22:11)
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
--- NOTE | 2018-12-24 23:23 | RADIOLOGY REPORT (SQ) ---
EXAM DESCRIPTION: XR LEFT SHOULDER 2 OR MORE VIEWS COMPLETED DATE/TME: 12/24/2018 22:10 CLINICAL HISTORY: 23 years, Female, left shoulder/scapular pain s/p injury COMPARISON: None. NUMBER OF VIEWS: TECHNIQUE: LIMITATIONS: None. FINDINGS: No fracture or dislocation. The acromioclavicular joint appears intact. Mineralization of bone appears normal. IMPRESSION: No fracture or dislocation. copyright 2010 [employer]- All Rights Reserved
[2018-12-25 00:02] VITALS: BP 90/55
== END 2018-12-25 00:01 | disposition home or self-care (01) ==
LOC: ER 20:22
DX: M25.512 Pain in left shoulder (principal); V19.40XA Pedal cycle driver injured in collision with unspecified motor vehicles in traffic accident, initial encounter; Y93.55 Activity, bike riding; J45.909 Unspecified asthma, uncomplicated
CPT/HCPCS: 99283; 96372; 73030; J1885

== ENCOUNTER 2019-04-16 19:19 | Emergency (ER) | payer BC, MEDICAID ==
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
--- NOTE | 2019-04-16 20:52 | RADIOLOGY REPORT (SQ) ---
3 VIEWS OF RIGHT FOOT AND ANKLE EXAM DATE: 04/16/2019 8:17 PM CDT HISTORY: Ankle/foot pain. COMPARISON: None. FINDINGS: The ankle mortise is preserved on these nonstress views. No acute fracture is seen. There is mild surrounding soft tissue swelling. IMPRESSION: No acute fracture or malalignment.
[2019-04-16 21:24] VITALS: BP 108/67
== END 2019-04-16 21:42 | disposition home or self-care (01) ==
LOC: ER 19:19
DX: S91.111A Laceration without foreign body of right great toe without damage to nail, initial encounter (principal); S99.911A Unspecified injury of right ankle, initial encounter; M79.674 Pain in right toe(s); M25.571 Pain in right ankle and joints of right foot; W23.0XXA Caught, crushed, jammed, or pinched between moving objects, initial encounter; J45.909 Unspecified asthma, uncomplicated
CPT/HCPCS: 99283

== ENCOUNTER 2020-06-22 10:20 | Emergency (ER) | payer BC, MEDICAID ==
[2020-06-22 10:27] VITALS: BP 122/62
--- NOTE | 2020-06-22 11:14 | ER Document Report ---
ED Medical Screen (RME) - General Chief Complaint: Jaw Pain Stated Complaint: MOUTH PAIN,JAW PAIN Notes: 24-year-old female with past medical history of strep presenting today with right-sided throat swelling and pain starting approximately 3 days ago. She went was tested for strep and COVID at [place] which came back negative. She continues to have worsening swelling and pain on her right side of her throat. She is also noticed some uvula swelling. She has difficulty opening her mouth. She denies any fevers, chills, shortness of breath, chest pain nausea vomiting. She has taken ibuprofen to help alleviate her symptoms. This has provided minimal relief. Last ibuprofen was approximately 6 PM yesterday. Her menstrual period started today. No prior surgeries reported. She does have an allergy to penicillin. She does not smoke, does not drink, no drug use. Physical Exam: Trismus, uvula deviated to the left, swelling of the right anterior pillar and soft palate with associated erythema. Tenderness along right neck. I have greeted and performed a rapid initial assessment of this patient. A comprehesive ED assessment and evaluation of this patient, analysis of test results and completion of the medical decision-making process will be conducted by additional ED providers. TRAVEL OUTSIDE OF THE [place] IN LAST 30 DAYS: No - Related Data Allergies/Adverse Reactions: Penicillins Allergy (Verified 06/22/20 10:34) Home Medications: suboxone Past Medical History - Social History Chew tobacco use (# tins/day): No Frequency of alcohol use: None Drug Abuse: None Pulmonary Medical History: Reports: Hx Asthma Neurological Medical History: Reports: Hx Migraine Renal/ Medical History: Denies: Hx Peritoneal Dialysis Psychiatric Medical History: Reports: Hx Depression - post - Immunizations Immunizations up to date: Yes Hx Diphtheria, Pertussis, Tetanus Vaccination: Yes Physical Exam - Vital signs Vitals: Temp Pulse Resp BP Pulse Ox 99.3 F 97 16 122/62 100 06/22/20 10:06/22/20 10:06/22/20 10:06/22/20 10:06/22/20 10:25 Course - Vital Signs Vital signs: Temp Pulse Resp BP Pulse Ox 99.3 F 97 16 122/62 100 06/22/20 10:34 06/22/20 10:06/22/20 10:25 06/22/20 10:25 06/22/20 10:25
[2020-06-22] MEDS ORDERED: ACETAMINOPHEN 325 MG TABLET PO ONE (11:25)
[2020-06-22 12:39] LABS: ABSOLUTE EOSINOPHILS # (AUTO) 0.1 10^3/uL (0.0-0.6); ABSOLUTE LYMPHOCYTES (AUTO) 1.2 10^3/uL (0.5-4.7); ABSOLUTE MONOCYTES (AUTO) 0.2 10^3/uL (0.1-1.4); ABSOLUTE NEUT (AUTO) 5.3 10^3/uL (1.7-8.2); BASOPHILS % (AUTO) 0.3 % (0-2); EOSINOPHILS % (AUTO) 1.6 % (0-6); HEMATOCRIT 35.3 % (36.0-47.0); LYMPHOCYTES % (AUTO) 17.3 % (13-45); MEAN CORPUSCULAR HEMOGLOBIN 24.9 pg (27.0-33.4); MEAN CORPUSCULAR HGB CONC 34.1 g/dL (32.0-36.0); MEAN CORPUSCULAR VOLUME 73 fl (80-97); MONOCYTES % (AUTO) 2.8 % (3-13); PLATELET COUNT 198 10^3/uL (150-450); RED BLOOD COUNT 4.83 10^6/uL (3.72-5.28); RED CELL DISTRIBUTION WIDTH 15.9 % (11.5-14.0); TOTAL CELLS COUNTED % (AUTO) 100 %; WHITE BLOOD COUNT 6.8 10^3/uL (4.0-10.5)
[2020-06-22 13:03] LABS: ALBUMIN 4.3 g/dL (3.5-5.0); ALKALINE PHOSPHATASE 107 U/L (38-126); ANION GAP 9 (5-19); ASPARTATE AMINO TRANSFERASE 29 U/L (14-36); BILIRUBIN,DIRECT 0.3 mg/dL (0.0-0.4); BILIRUBIN,TOTAL 0.4 mg/dL (0.2-1.3); BLOOD UREA NITROGEN 6 mg/dL (7-20); CALCIUM 9.5 mg/dL (8.4-10.2); CARBON DIOXIDE 27 mmol/L (22-30); CHLORIDE 104 mmol/L (98-107); GLUCOSE 126 mg/dL (75-110); POTASSIUM 3.5 mmol/L (3.6-5.0); TOTAL PROTEIN 8.3 g/dL (6.3-8.2)
--- NOTE | 2020-06-22 13:08 | RADIOLOGY REPORT (SQ) ---
EXAM DESCRIPTION: CT SOFT TISSUE NECK WITH IMAGES COMPLETED DATE/TIME: 06/22/2020 12:56 pm REASON FOR STUDY: right sided throat swelling COMPARISON: None. TECHNIQUE: Post IV contrasted scanning from skull base through lung apices with review of bone, soft tissue and lung windows. Reconstructed coronal and sagittal MPR images reviewed. All images stored on PACS. All CT scanners at this facility use dose modulation, iterative reconstruction, and/or weight based d osing when appropriate to reduce radiation dose to as low as reasonably achievable (ALARA). [facility]: Dose Right [facility]: CareDose [facility]: Dose Right [facility]: Teradose 4D [facility]: [employer] CONTRAST TYPE AND DOSE: contrast/concentration: Isovue 350.00 mmol/ml; Total Contrast Delivered: 75. 0 ml; Total Saline Delivered: 50.0 ml RENAL FUNCTION: None required. The patient is less than 50 years old. RADIATION DOSE: CT Rad equipment meets quality standard of care and radiation dose reduction techniq ues were employed. CTDIvol: 8.6 mGy. DLP: 272 mGy-cm. . LIMITATIONS: None. FINDINGS: SKULL BASE: Intact. MAJOR SALIVARY GLANDS: No solid or cystic masses. No inflammatory changes. LYMPHADENOPATHY: No pathologic adenopathy. Small scattered cervical nodes. MUCOSAL MASSES OR ASYMMETRY: Fullness in the right tonsil and loss of the normal fat planes in the ri ght parapharyngeal space. Focal 11.8 mm air decreased attenuation is noted on series 3, image 27. D eveloping abscess is suspected. LARYNX/CORDS: No abnormal findings. VASCULAR STRUCTURES: The major vessels are patent. LUNG APICES: Clear. BONES: Intact. THYROID: Normal size. No masses. PARANASAL SINUSES: Clear. OTHER: No other significant finding. IMPRESSION: Probable developing right tonsillar abscess. There is loss of the normal right paraphar yngeal fat planes. Focal 11.8 mm area of decreased attenuation best demonstrated on series 3, image 27. TECHNICAL DOCUMENTATION: JOB ID: [id number] Quality ID # [id number]: Final reports with documentation of one or more dose reduction techniques (e.g., Au tomated exposure control, adjustment of the mA and/or kV according to patient size, use of iterative reconstruction technique) 2010 [employer]- All Rights Reserved Reading location - IP/workstation name: [facility]
[2020-06-22] MEDS ORDERED: CLINDAMYCIN 900 MG/D5W RTU 900 MG/50 ML RTUPB IV ONE (13:21)
[2020-06-22] MEDS ORDERED: DEXAMETHASONE SOD PHOS INJ 10 MG/1 ML VIAL IV ONE (14:44)
--- NOTE | 2020-06-22 14:53 | ER Document Report ---
ED ENT - General Chief Complaint: Jaw Pain Stated Complaint: MOUTH PAIN,JAW PAIN Time Seen by Provider: 06/22/20 11:54 Mode of Arrival: Ambulatory Information source: Patient TRAVEL OUTSIDE OF THE [place] IN LAST 30 DAYS: No - HPI Notes: Patient presents with right-sided throat pain and jaw pain. She states is been going on approximate 3 to 4 days. She was recently seen in the clinic and had a negative strep test but she states she did not receive any antibiotics. The pain is continued to be constant. Is worse with swallowing or movement of the area. Better with rest. It does radiate into her right face. It is a burning and aching sensation. Is moderate to severe. She is had some low-grade fevers no vomiting or diarrhea. 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 - Related Data Allergies/Adverse Reactions: Penicillins Allergy (Verified 06/22/20 10:34) Home Medications: suboxone Past Medical History - General Information source: Patient - Social History Smoking Status: Former Smoker Chew tobacco use (# tins/day): No Frequency of alcohol use: None Drug Abuse: None Family History: Reviewed & Not Pertinent Patient has homicidal ideation: No Pulmonary Medical History: Reports: Hx Asthma Neurological Medical History: Reports: Hx Migraine Renal/ Medical History: Denies: Hx Peritoneal Dialysis Psychiatric Medical History: Reports: Hx Depression - post - Immunizations Immunizations up to date: Yes Hx Diphtheria, Pertussis, Tetanus Vaccination: Yes Review of Systems - Review of Systems Constitutional: Chills, Recent illness Cardiovascular: denies: Chest pain, Palpitations Respiratory: denies: Cough, Short of breath -: Yes All other systems reviewed and negative Physical Exam - Vital signs Vitals: Temp Pulse Resp BP Pulse Ox 99.3 F 97 16 122/62 100 06/22/20 10:25 06/22/20 10:25 06/22/20 10:25 06/22/20 10:25 06/22/20 10:25 Interpretation: Normal - General General appearance: Appears well, Alert - HEENT Head: Normocephalic, Atraumatic Eyes: Normal Pupils: PERRL Mouth/Lips: Normal Mucous membranes: Moist Pharynx: Erythema, Other - Right tonsillar pillar is swollen and erythematous but I do not appreciate any pus. No: Exudate Neck: Lymphadenopathy - Respiratory Respiratory status: No respiratory distress Chest status: Nontender Breath sounds: Normal Chest palpation: Normal - Cardiovascular Rhythm: Regular Heart sounds: Normal auscultation Murmur: No - Abdominal Inspection: Normal Distension: No distension Bowel sounds: Normal Tenderness: Nontender Organomegaly: No organomegaly - Back Back: Normal, Nontender - Extremities General upper extremity: Normal inspection, Nontender, Normal color, Normal ROM, Normal temperature General lower extremity: Normal inspection, Nontender, Normal color, Normal ROM, Normal temperature, Normal weight bearing. No: Norma's sign - Neurological Neuro grossly intact: Yes Cognition: Normal Orientation: AAOx4 [place] Coma Scale Eye Opening: Spontaneous [place] Coma Scale Verbal: Oriented Ronal Coma Scale Motor: Obeys Commands Ronal Coma Scale Total: 15 Speech: Normal Motor strength normal: LUE, RUE, LLE, RLE Sensory: Normal - Psychological Associated symptoms: Normal affect, Normal mood - Skin Skin Temperature: Warm Skin Moisture: Dry Skin Color: Normal Course - Re-evaluation Re-evalutation: 06/22/20 14:49 Patient states she feels significantly better after the Decadron and antibiotics and IV fluids. Patient has no evidence of drainable abscess on CT. I have discussed the case with Dr. Norman, the ENT. He states he can follow-up with the patient in the office. Vital signs are stable. She is nontoxic-appearing. - Vital Signs Vital signs: Temp Pulse Resp BP Pulse Ox 99.3 F 97 16 122/62 100 06/22/20 10:34 06/22/20 10:25 06/22/20 10:25 06/22/20 10:25 06/22/20 10:25 - Laboratory Result Diagrams: 06/22/20 12:28 06/22/20 12:28 Laboratory results interpreted by me: 06/22/20 06/22/20 12:28 12:28 Hct 35.3 L MCV 73 L MCH 24.9 L RDW 15.9 H Traill % (Auto) 2.8 L Potassium 3.5 L BUN 6 L Creatinine 0.50 L Glucose 126 H Total Protein 8.3 H - Diagnostic Test Radiology reviewed: Image reviewed, Reports reviewed Discharge - Discharge Clinical Impression: Cellulitis of pharynx Condition: Stable Disposition: HOME, SELF-CARE Instructions: Avril-Tonsillar Abscess ([facility]) Additional Instructions: Please call Dr. Norman for follow up if any further concerns. Prescriptions: Dexamethasone [Decadron 4 Mg Tablet] 4 mg PO DAILY 2 Days #2 tablet Hydrocodone/Acetaminophen [Frederick 5-325 mg Tablet] 1 tab PO Q6 PRN 3 Days #12 t ablet PRN Reason: For Pain Doxycycline Hyclate [Vibramycin 100 mg Tablet] 100 mg PO BID 10 Days #20 tablet Referrals: DAI NORMAN DO [ASSOCIATE] - Follow up in 1 week
[2020-06-22] MEDS ORDERED: MORPHINE SULFATE 10 MG/ML INJ IV ONE (15:28)
== END 2020-06-22 15:58 | disposition home or self-care (01) ==
LOC: ER 10:20
DX: J39.1 Other abscess of pharynx (principal); J45.909 Unspecified asthma, uncomplicated; Z79.899 Other long term (current) drug therapy; Z87.891 Personal history of nicotine dependence; Z88.0 Allergy status to penicillin
CPT/HCPCS: 99285; 96375; 96365; 96367; 36415; 87070; 87880; 85025; 81025; 80053; 70491; J3490; J2270; J1100

== ENCOUNTER 2020-10-11 12:18 | Emergency (ER) | payer OTHER, MEDICAID ==
[2020-10-11] MEDS ORDERED: DIPH/PERTUSS(ACELL)/TETANUS VAC/PF 0.5 ML SYR (>=10YO) IM ONE (12:47)
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
[2020-10-11] MEDS ORDERED: LIDOCAINE 1.5%/EPINEPHRINE INJ-PF 30 ML SDV INJ ONE (14:25)
[2020-10-11] MEDS ORDERED: ONDANSETRON 4 MG TAB.RAPDIS PO ONE (15:23)
[2020-10-11] MEDS ORDERED: ACETAMINOPHEN 325 MG TABLET PO ONE (15:23)
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
[2020-10-11 15:43] VITALS: BP 94/65
== END 2020-10-11 15:43 | disposition home or self-care (01) ==
LOC: ER 12:18
DX: S06.0X0A Concussion without loss of consciousness, initial encounter (principal); S01.01XA Laceration without foreign body of scalp, initial encounter; V89.2XXA Person injured in unspecified motor-vehicle accident, traffic, initial encounter; Z23 Encounter for immunization
CPT/HCPCS: 99284; 90471; 81025; 70450; 90715; 12002; S0119; J3490